=== PATIENT | male | born 1995 | race Caucasian/White ===

== ENCOUNTER 2016-11-27 20:08 | Emergency (ER) | payer OTHER ==
[2016-11-27 21:35] VITALS: BP 130/85
== END 2016-11-27 21:35 | disposition home or self-care (01) ==
LOC: ED 20:08
DX: T63.441A Toxic effect of venom of bees, accidental (unintentional), initial encounter (principal); J02.9 Acute pharyngitis, unspecified; M79.89 Other specified soft tissue disorders; Y92.89 Other specified places as the place of occurrence of the external cause
CPT/HCPCS: J1100

== ENCOUNTER 2017-06-30 17:11 | Emergency (ER) | payer OTHER ==
[~2017-06-30] VITALS: Ht 175.3 cm; Wt 92.5 kg
[2017-06-30 17:25] VITALS: Ht 175.3 cm; Wt 92.5 kg
[2017-06-30 18:25] VITALS: BP 134/82
== END 2017-06-30 18:25 | disposition home or self-care (01) ==
LOC: ED 17:11
DX: L72.3 Sebaceous cyst (principal)

== ENCOUNTER 2017-07-03 12:37 | Emergency (ER) | payer OTHER ==
[~2017-07-03] VITALS: Ht 175.3 cm; Wt 93.0 kg
[2017-07-03 12:47] VITALS: Ht 175.3 cm; Wt 93.0 kg
[2017-07-03 17:09] VITALS: BP 128/81
== END 2017-07-03 17:20 | disposition home or self-care (01) ==
LOC: ED 12:37
DX: L72.0 Epidermal cyst (principal)

== ENCOUNTER 2017-10-30 22:57 | Emergency (ER) | payer OTHER ==
[~2017-10-30] VITALS: Ht 175.3 cm; Wt 94.8 kg
[2017-10-30 23:13] VITALS: Ht 175.3 cm; Wt 94.8 kg
[2017-10-30 23:58] LABS: BASOPHIL % 0.3 % (0-2); PLATELET COUNT 300 x10^3mcL (130-400); RED CELL DISTRIBUTION WIDTH 13.1 % (11.5-14.5)
[2017-10-31 00:19] LABS: CALCIUM 8.4 mg/dL (8.5-10.1); CARBON DIOXIDE 26.1 mmol/L (21-32); CHLORIDE SERUM 105 mmol/L (98-107); CREATININE SERUM 0.9 mg/dL (0.7-1.3); GFR1 > 60 mL/min; GLUCOSE SERUM 116 mg/dL (74-106); POTASSIUM SERUM 3.4 mmol/L (3.5-5.1); SODIUM SERUM 141 mmol/L (136-145)
[2017-10-31 00:24] LABS: ALKALINE PHOSPHATASE 139 U/L (46-116); ALT/SGPT 72 U/L (16-63); AST/SGOT 28 U/L (15-37); BILIRUBIN TOTAL 0.4 mg/dL (0.20-1.00); LIPASE 144 IU/L (73-393)
[2017-10-31 03:10] VITALS: BP 120/74
== END 2017-10-31 03:10 | disposition home or self-care (01) ==
LOC: ED 22:57
PROVIDERS: Emergency Medicine
DX: R10.13 Epigastric pain (principal); R11.10 Vomiting, unspecified
CPT/HCPCS: J2405; J7030